=== PATIENT | male | born 1955 | race Caucasian/White ===

== ENCOUNTER 2016-04-19 17:16 | Emergency (ER) | payer OTHER ==
--- NOTE | 2016-04-19 19:48 | DIAGNOSTIC IMAGING REPORT ---
PROCEDURE: CT HEAD WITHOUT CONTRAST INDICATION: SYNCOPE, initial encounter. TECHNIQUE: Noncontrast axial images with sagittal and coronal reformations. COMPARISON: None. FINDINGS: Sulci, ventricular system, and brain parenchyma are normal. No evidence of acute intracranial process. Visualized mastoids and sinuses are clear. IMPRESSION: 1. Negative non-enhanced head CT. 2. Findings discussed with Dr. Waters at 07:43 p.m.[facility] Standard Time
--- NOTE | 2016-04-19 19:48 | DIAGNOSTIC IMAGING REPORT ---
PROCEDURE: CT HEAD WITHOUT CONTRAST INDICATION: SYNCOPE, initial encounter. TECHNIQUE: Noncontrast axial images with sagittal and coronal reformations. COMPARISON: None. FINDINGS: Sulci, ventricular system, and brain parenchyma are normal. No evidence of acute intracranial process. Visualized mastoids and sinuses are clear. IMPRESSION: 1. Negative non-enhanced head CT. 2. Findings discussed with Dr. Waters at 07:43 p.m.[facility] Standard Time
--- NOTE | 2016-04-19 20:05 | DIAGNOSTIC IMAGING REPORT ---
PROCEDURE: XR CHEST 1 VIEW INDICATION: BLURRED VISION TECHNIQUE: Portable AP view 06:34 p.m. COMPARISON: None. FINDINGS: Poor inspiration with mild bibasilar atelectasis. Heart and mediastinum are normal. Thorax is normal. IMPRESSION: 1. Poor inspiration with mild bibasilar atelectasis.
--- NOTE | 2016-04-19 22:02 | ED ORDER SUMMARY ---
..... Patient: ROSY MYERS OrderSheet [facility] VisitID: [id number] [place] [address] 60y, M Registration Date/Time: 04/19/2016 ORDER SHEET Weight: 88.4 kg (stated) Allergies: No Known Drug Allergy GENERAL ORDERS: Math And Sciences Department Chair (Continuous) (17:49 04/19/2016 Debbie ESCOBEDO) (18:00 omanelli R.N.) Cardiac Panel Stat (17:49 04/19/2016 Debbie ESCOBEDO) (Ack 17:53 Tahir) (18:14 Cielo R.N.) Pulse oximeter (17:49 04/19/2016 Debbie ESCOBEDO) (18:00 Cielo R.N.) EKG - ER Stat (17:49 04/19/2016 Debbie ESCOBEDO) (Ack 17:53 OHjacquenandez) (18:00 JRomanelli R.N.) Vitals - Orthostatic (17:49 04/19/2016 Debbie ESCOBEDO) (18:26 JRomanelli R.N.) BNP Urgent (18:26 04/19/2016 Cielo R.N. verbal order read back to Debbie ESCOBEDO) (18:31 TBergley) Chest 1V Urgent (18:27 04/19/2016 Cielo R.N. verbal order read back to Debbie ESCOBEDO) (Ack 18:37 TBergley) (18:48 Perezelli R.N.) CT Head wo Cont Urgent (19:04 04/19/2016 TBergley verbal order read back to Debbie ESCOBEDO) (Ack 19:04 TBergley) (19:27 RFay) MEDICATION ORDERS: - (metoprolol 50 mg xL) (21:54 04/19/2016 Debbie ESCOBEDO) (22:40 Cielo R.N.) IV FLUIDS: IV Saline Lock (17:49 04/19/2016 Debbie ESCOBEDO) (18:14 Cielo R.N.) Lopressor IV 5 mg + 5 mg (NOW) (19:01 04/19/2016 Debbie ESCOBEDO) (19:35 Cielo R.N.) ORDER SHEET NOTES: [Electronically signed by Star Clifford R.N. (23:59 04/19/2016)] [Electronically signed by Brice Waters MD (14:25 04/21/2016)] [Electronically locked/signed by Star Clifford R.N. (23:59 04/19/2016)]
--- NOTE | 2016-04-19 22:02 | ED NURSING NOTES ---
Clinical Report - Nurses [facility] [address] [place] [address] 04/19/2016 17:17 Patient: ROSY MYERS TRIAGE Triage time 17:23. Chief Complaint: (PT STATES HE FELL OVER, ALMOST FAINTED, HAS BLURRED VISION). --17:24 Jing Michaels R.N. Acuity: LEVEL 3. Chief Complaint: (Weakness associated with blurred vision). Alert. DAYLIN COMA SCORE: Daylin Coma Scale: 15- eyes open spontaneously (4); best verbal response- oriented x 4 (5); best motor response- obeys commands (6). --17:58 Star Clifford R.N. 17:48 04/19/16. BP: 228/106. HR: 68. RR: 16. O2 saturation: 94% on room air. Temp: 98.7 F (oral). Pain level now: 0/10. --17:58 Star Clifford R.N. 17:23 04/19/16. Pain level now: 1/10. Additional comments: (R) Big Toe pain. --18:13 Star Clifford R.N. Weight: 88.4 kg stated. Height/Length: 71 inches Per Patient. BMI: 27.2. --17:50 Star Clifford R.N. Medications None. --17:49 Star Clifford R.N. Allergies No Known Drug Allergy. --17:50 Star Clifford R.N. Medication/allergy information source: the patient. --17:58 Star Clifford R.N. History Arrived by private vehicle. Historian: family. Accompanied by (uncle). Primary physician (none). This started today. Onset. (1 hour ago). --17:24 Jing Michaels R.N. The patient has had nausea. ( Weakness). Treatment AGENCY MANAGER: Took aspirin. (325mg). PAST MEDICAL HX: Immunizations: status is unknown. SURGERY HX: No history of previous surgery. SOCIAL HX: Never smoker. Alcohol use. Last drink was 10 years ago. (Hasn't drank for 10 years). No drug use. No infectious disease exposure. ABUSE ASSESSMENT: No report of abuse. FALL RISK ASSESSMENT: Fall risk assessment completed. No fall risk identified. NUTRITIONAL RISK ASSESSMENT: The nutritional risk assessment revealed no deficiencies. FUNCTIONAL ASSESSMENT: Functional assessment: no impairments noted. LEARNING NEEDS ASSESSMENT: The learning needs assessment revealed no barriers. SKIN INTEGRITY ASSESSMENT: Skin integrity risk assessment completed. No skin integrity risk identified. --17:58 Star Clifford R.N. PROBLEMS: Hypoglycemia. --17:52 Star Clifford R.N. Gout. Epistaxis. Nephrolithiasis. --18:12 Star Clifford R.N. ADDITIONAL SURGERIES: no known surgeries. Interventions ID band on patient. To treatment room. --17:58 Star Clifford R.N. PHYSICAL ASSESSMENT Ambulatory to room. GENERAL / NEURO / PSYCH: Alert. Oriented X 4. HEENT: Mucous membranes are pink. RESPIRATORY: Respirations not labored. CVS: Normal sinus rhythm noted. Pulses within normal limits. Capillary refill less than 2 seconds. GI / : Abdomen soft and nontender. EXTREMITIES: No lower extremity edema. SKIN: Skin is warm and dry. Normal skin turgor. Skin is non-tender. --17:59 Star Clifford R.N. RESPIRATORY: Decreased breath sounds in the left lung base posteriorly. Fine crackles in the left lung base posteriorly. CVS: Heart sounds within normal limits. --18:28 Star Clifford R.N. NURSING PROGRESS NOTES ekg monitor tech, pulse oximeter and NIBP monitor placed on patient; court monitor- Lead II and V1; monitor alarms on. Patient gowned. Reassurance given. Patient identifiers checked. Call light placed in reach. Side rails up x 1. Bed placed in lowest position. Brakes of bed on. Patient ready for evaluation- chart flagged and ED physician notified. --17:59 Star Clifford R.N. EKG time: (1803). EKG was ordered, performed by a tech and shown to the ED physician. --18:03 Ofe Foy 18:12 04/19/16. BP: 235/106. HR: 82. RR: 16. O2 saturation: 95%. --18:12 Star Clifford R.N. 18:04 04/19/2016 Site #1 started via IV in the right antecubital space with an 20g angiocath, with aseptic technique and good blood return; one attempt. Blood drawn: rainbow set. Labeled in the presence of the patient and sent to the lab. Saline lock flushed with 10 mL saline. --18:14 Star Clifford R.N. 18:15 04/19/16. BP: 233/107 taken while lying. HR: 86. RR: 16. O2 saturation: 97% on room air. Pain level now: 0/10. --18:24 Star Clifford R.N. 18:18 04/19/16. BP: 238/113. HR: 88. RR: 16. O2 saturation: 95%. --18:25 Star Clifford R.N. 18:21 04/19/16. BP: 240/113. HR: 88. RR: 16. O2 saturation: 94%. --18:26 Star Clifford R.N. 19:30 04/19/2016 Lopressor (Metoprolol Tartrate) IVP 5 mg given over 3 minute(s) via site #1. Allergies verified and confirmed 5 rights. IV patency established. IV site checked: no pain, redness, or swelling. IV flushed thoroughly pre- and post-medication administration. IVP given by RN. --19:35 Star Clifford R.N. 19:45 04/19/2016 Lopressor (Metoprolol Tartrate) IVP 5 mg given over 3 minute(s) via site #1. Allergies verified and confirmed 5 rights. IV patency established. IV site checked: no pain, redness, or swelling. IV flushed thoroughly pre- and post-medication administration. IVP given by RN. --19:48 Star Clifford R.N. 18:35. ( CXR in room). --19:51 Star Clifford R.N. 19:00. Patient transported to CT by stretcher with tech. --19:49 Star Clifford R.N. 19:20. Patient returned from CT by stretcher with tech. --19:49 Star Clifford R.N. 21:14 04/19/16. BP: 192/90. HR: 70. RR: 16. O2 saturation: 97%. Pain level now: 0/10. --21:15 Star Clifford R.N. 22:25 04/19/2016 Metoprolol XL * PO 50 mg --22:40 Star Clifford R.N. 22:35 04/19/2016 Site #1 removed upon discharge. Catheter intact. Manual pressure, bandaid and bandage applied. --23:58 Star Clifford R.N. DISPOSITION / DISCHARGE 22:40 04/19/16. BP: 197/92. HR: 68. RR: 16. O2 saturation: 98% on room air. Temp: 97.6 F. Pain level now: 0/10. --23:54 Star Clifford R.N. Departure time: 2240. --23:54 Star Clifford R.N. 22:40. Condition at departure: improved. No learning barriers present. Discharge instructions provided and reviewed with the patient. Reviewed medication(s) (prescription given to pt). Reviewed referrals ([facility]). Patient verbalized understanding. Written instructions provided in Yi. The patient was discharged by the physician. He was discharged home and unaccompanied at time of discharge. He left the Emergency Department ambulatory and via private vehicle. Patient driving. --23:57 Star Clifford R.N. Locked/Released at 04/19/2016 23:59 by Star Clifford R.N.
--- NOTE | 2016-04-19 22:02 | ED NURSING NOTES ---
Clinical Report - Nurses [facility] [address] [place] [address] 04/19/2016 17:17 Patient: ROSY MYERS TRIAGE Triage time 17:23. Chief Complaint: (PT STATES HE FELL OVER, ALMOST FAINTED, HAS BLURRED VISION). --17:24 Jing Michaels R.N. Acuity: LEVEL 3. Chief Complaint: (Weakness associated with blurred vision). Alert. DAYLIN COMA SCORE: Daylin Coma Scale: 15- eyes open spontaneously (4); best verbal response- oriented x 4 (5); best motor response- obeys commands (6). --17:58 Star Clifford R.N. 17:48 04/19/16. BP: 228/106. HR: 68. RR: 16. O2 saturation: 94% on room air. Temp: 98.7 F (oral). Pain level now: 0/10. --17:58 Star Clifford R.N. 17:23 04/19/16. Pain level now: 1/10. Additional comments: (R) Big Toe pain. --18:13 Star Clifford R.N. Weight: 88.4 kg stated. Height/Length: 71 inches Per Patient. BMI: 27.2. --17:50 Star Clifford R.N. Medications None. --17:49 Star Clifford R.N. Allergies No Known Drug Allergy. --17:50 Star Clifford R.N. Medication/allergy information source: the patient. --17:58 Star Clifford R.N. History Arrived by private vehicle. Historian: family. Accompanied by (uncle). Primary physician (none). This started today. Onset. (1 hour ago). --17:24 Jing Michaels R.N. The patient has had nausea. ( Weakness). Treatment ROD POINTER: Took aspirin. (325mg). PAST MEDICAL HX: Immunizations: status is unknown. SURGERY HX: No history of previous surgery. SOCIAL HX: Never smoker. Alcohol use. Last drink was 10 years ago. (Hasn't drank for 10 years). No drug use. No infectious disease exposure. ABUSE ASSESSMENT: No report of abuse. FALL RISK ASSESSMENT: Fall risk assessment completed. No fall risk identified. NUTRITIONAL RISK ASSESSMENT: The nutritional risk assessment revealed no deficiencies. FUNCTIONAL ASSESSMENT: Functional assessment: no impairments noted. LEARNING NEEDS ASSESSMENT: The learning needs assessment revealed no barriers. SKIN INTEGRITY ASSESSMENT: Skin integrity risk assessment completed. No skin integrity risk identified. --17:58 Star Clifford R.N. PROBLEMS: Hypoglycemia. --17:52 Star Clifford R.N. Gout. Epistaxis. Nephrolithiasis. --18:12 Star Clifford R.N. ADDITIONAL SURGERIES: no known surgeries. Interventions ID band on patient. To treatment room. --17:58 Star Clifford R.N. PHYSICAL ASSESSMENT Ambulatory to room. GENERAL / NEURO / PSYCH: Alert. Oriented X 4. HEENT: Mucous membranes are pink. RESPIRATORY: Respirations not labored. CVS: Normal sinus rhythm noted. Pulses within normal limits. Capillary refill less than 2 seconds. GI / : Abdomen soft and nontender. EXTREMITIES: No lower extremity edema. SKIN: Skin is warm and dry. Normal skin turgor. Skin is non-tender. --17:59 Star Clifford R.N. RESPIRATORY: Decreased breath sounds in the left lung base posteriorly. Fine crackles in the left lung base posteriorly. CVS: Heart sounds within normal limits. --18:28 Star Clifford R.N. NURSING PROGRESS NOTES playground monitor, pulse oximeter and NIBP monitor placed on patient; surveillance system monitor- Lead II and V1; monitor alarms on. Patient gowned. Reassurance given. Patient identifiers checked. Call light placed in reach. Side rails up x 1. Bed placed in lowest position. Brakes of bed on. Patient ready for evaluation- chart flagged and ED physician notified. --17:59 Star Clifford R.N. EKG time: (1803). EKG was ordered, performed by a tech and shown to the ED physician. --18:03 Ofe Foy 18:12 04/19/16. BP: 235/106. HR: 82. RR: 16. O2 saturation: 95%. --18:12 Star Clifford R.N. 18:04 04/19/2016 Site #1 started via IV in the right antecubital space with an 20g angiocath, with aseptic technique and good blood return; one attempt. Blood drawn: rainbow set. Labeled in the presence of the patient and sent to the lab. Saline lock flushed with 10 mL saline. --18:14 Star Clifford R.N. 18:15 04/19/16. BP: 233/107 taken while lying. HR: 86. RR: 16. O2 saturation: 97% on room air. Pain level now: 0/10. --18:24 Star Clifford R.N. 18:18 04/19/16. BP: 238/113. HR: 88. RR: 16. O2 saturation: 95%. --18:25 Star Clifford R.N. 18:21 04/19/16. BP: 240/113. HR: 88. RR: 16. O2 saturation: 94%. --18:26 Star Clifford R.N. 19:30 04/19/2016 Lopressor (Metoprolol Tartrate) IVP 5 mg given over 3 minute(s) via site #1. Allergies verified and confirmed 5 rights. IV patency established. IV site checked: no pain, redness, or swelling. IV flushed thoroughly pre- and post-medication administration. IVP given by RN. --19:35 Star Clifford R.N. 19:45 04/19/2016 Lopressor (Metoprolol Tartrate) IVP 5 mg given over 3 minute(s) via site #1. Allergies verified and confirmed 5 rights. IV patency established. IV site checked: no pain, redness, or swelling. IV flushed thoroughly pre- and post-medication administration. IVP given by RN. --19:48 Star Clifford R.N. 18:35. ( CXR in room). --19:51 Star Clifford R.N. 19:00. Patient transported to CT by stretcher with tech. --19:49 Star Clifford R.N. 19:20. Patient returned from CT by stretcher with tech. --19:49 Star Clifford R.N. 21:14 04/19/16. BP: 192/90. HR: 70. RR: 16. O2 saturation: 97%. Pain level now: 0/10. --21:15 Star Clifford R.N. 22:25 04/19/2016 Metoprolol XL * PO 50 mg --22:40 Star Clifford R.N. 22:35 04/19/2016 Site #1 removed upon discharge. Catheter intact. Manual pressure, bandaid and bandage applied. --23:58 Star Clifford R.N. DISPOSITION / DISCHARGE 22:40 04/19/16. BP: 197/92. HR: 68. RR: 16. O2 saturation: 98% on room air. Temp: 97.6 F. Pain level now: 0/10. --23:54 Star Clifford R.N. Departure time: 2240. --23:54 Star Clifford R.N. 22:40. Condition at departure: improved. No learning barriers present. Discharge instructions provided and reviewed with the patient. Reviewed medication(s) (prescription given to pt). Reviewed referrals ([facility]). Patient verbalized understanding. Written instructions provided in Irish. The patient was discharged by the physician. He was discharged home and unaccompanied at time of discharge. He left the Emergency Department ambulatory and via private vehicle. Patient driving. --23:57 Star Clifford R.N. Locked/Released at 04/19/2016 23:59 by Star Clifford R.N.
--- NOTE | 2016-04-19 22:02 | ED ORDER SUMMARY ---
..... Patient: ROSY MYERS OrderSheet [facility] VisitID: [id number] [place] [address] 60y, M Registration Date/Time: 04/19/2016 ORDER SHEET Weight: 88.4 kg (stated) Allergies: No Known Drug Allergy GENERAL ORDERS: Remotely Piloted Vehicle Controller (Continuous) (17:49 04/19/2016 Debbie ESCOBEDO) (18:00 omanelli R.N.) Cardiac Panel Stat (17:49 04/19/2016 Debbie ESCOBEDO) (Ack 17:53 Tahir) (18:14 Cielo R.N.) Pulse oximeter (17:49 04/19/2016 Debbie ESCOBEDO) (18:00 Cielo R.N.) EKG - ER Stat (17:49 04/19/2016 Debbie ESCOBEDO) (Ack 17:53 OHjacquenandez) (18:00 JRomanelli R.N.) Vitals - Orthostatic (17:49 04/19/2016 Debbie ESCOBEDO) (18:26 JRomanelli R.N.) BNP Urgent (18:26 04/19/2016 Cielo R.N. verbal order read back to Debbie ESCOBEDO) (18:31 TBergley) Chest 1V Urgent (18:27 04/19/2016 Cielo R.N. verbal order read back to Debbie ESCOBEDO) (Ack 18:37 TBergley) (18:48 Perezelli R.N.) CT Head wo Cont Urgent (19:04 04/19/2016 TBergley verbal order read back to Debbie ESCOBEDO) (Ack 19:04 TBergley) (19:27 RFay) MEDICATION ORDERS: - (metoprolol 50 mg xL) (21:54 04/19/2016 Debbie ESCOBEDO) (22:40 Cielo R.N.) IV FLUIDS: IV Saline Lock (17:49 04/19/2016 Debbie ESCOBEDO) (18:14 Cielo R.N.) Lopressor IV 5 mg + 5 mg (NOW) (19:01 04/19/2016 Debbie ESCOBEDO) (19:35 Cielo R.N.) ORDER SHEET NOTES: [Electronically signed by Star Clifford R.N. (23:59 04/19/2016)] [Electronically signed by Brice Waters MD (14:25 04/21/2016)] [Electronically locked/signed by Star Clifford R.N. (23:59 04/19/2016)]
--- NOTE | 2016-04-19 22:02 | ED CLINICAL REPORT ---
Clinical Report - Physicians/Mid Levels [facility]ly [facility] [address] [place] [address] 04/19/2016 17:17 Patient: ROSY MYERS Arrived- By private vehicle. Historian- patient. HISTORY OF PRESENT ILLNESS Chief Complaint: NEAR-SYNCOPE. It was gradual in onset. This occurred just prior to arrival today. ([place] like he was going to faint blurry vision [place] weak Equivocal 2 minutes of L hand numbness). Event was not witnessed. The patient felt faint. No loss of consciousness, seizure activity, incontinence or apnea noted. Did not lose pulse. At time of event, he was standing. This did not occur after he had just stood up or during exertion. The patient had preceding symptoms of light-headedness and dim vision. No preceding symptoms of nausea, chest pain or abdominal pain. Had a single episode. The episode was brief. No injuries noted. Currently he feels normal. No nausea currently. No headache currently. (Took an aspirin at home). Similar symptoms previously: None. REVIEW OF SYSTEMS No headache, chest pain or pain, difficulty breathing or chills. No fever, sweats, double vision, eye irritation or ear pain. No hearing loss, tinnitus, sinus pain, mouth sores or sore throat. No cough, difficulty breathing, palpitations, abdominal pain or black stools. No bloody stools, diarrhea, nausea or vomiting. No urinary frequency or urinary problems, back pain, neck pain or laceration. No skin rash, alteration in mental status, headache, head injury or numbness. No suicidal thoughts or difficulty with urination. The patient has had weakness of the left hand (mild), (equivocal history of very brief). He has had decreased vision. Denies sleep disorder. No difficulty walking. PAST HISTORY ( PCP: none Illness, Renal colic,). SOCIAL HISTORY Never smoker. No alcohol use. ADDITIONAL NOTES The nursing notes have been reviewed. PHYSICAL EXAM Vital Signs: 04/19/2016 22:40 BP: 197/92. HR: 68. RR: 16. O2 saturation: 98%. Temp: 97.6 F. Pain level now: 0/10. 04/19/2016 21:14 BP: 192/90. HR: 70. RR: 16. O2 saturation: 97%. Pain level now: 0. 04/19/2016 18:21 BP: 240/113. HR: 88. RR: 16. O2 saturation: 94%. 04/19/2016 18:18 BP: 238/113. HR: 88. RR: 16. O2 saturation: 95%. 04/19/2016 18:15 BP: 233/107. HR: 86. RR: 16. O2 saturation: 97%. Pain level now: 0. 04/19/2016 18:12 BP: 235/106. HR: 82. RR: 16. O2 saturation: 95%. 04/19/2016 17:48 BP: 228/106. HR: 68. RR: 16. O2 saturation: 94%. Temp: 98.7 F. Pain level now: . 04/19/2016 17:23 Pain level now: 02/25. Appearance: Alert. No acute distress. Eyes: Pupils equal, round and reactive to light. No nystagmus. Extraocular movements normal. No double vision. No dysconjugate gaze. No nystagmus. Funduscopic findings; (Bilateral disks - equivocally normal.) No retinal hemorrhages right eye. No exudates right eye. No AV nicking right eye or left eye. No retinal hemorrhages left eye. No exudates present left eye. ENT: Normal ENT inspection. Moist mucous membranes. Pharynx normal. Neck: Normal inspection. Neck supple. CVS: Normal heart rate and rhythm. Heart sounds normal. Respiratory: No respiratory distress. Breath sounds normal. Abdomen: Soft and nontender. Back: Normal inspection. Skin: Skin warm. Normal skin color. Extremities: Extremities exhibit normal ROM. No lower extremity edema. Neuro: Alert. Oriented X 3. Mood/affect normal. Speech normal. Cranial nerves normal (as tested). No facial weakness or visual field deficit. Normal gait. No motor deficit. No weakness. No sensory deficit. Reflexes normal. No pronator drift. LABS, X-RAYS, AND EKG EKG: Rate: 74. Normal P waves. Normal WILLIAM. Q waves in lead III, aVF, V1 and V2. Non-specific ST segment / T wave abnormalities. The study has been independently viewed by me. The EKG appears to be a good tracing. Chest X-ray: (PROCEDURE: XR CHEST 1 VIEW INDICATION: BLURRED VISION TECHNIQUE: Portable AP view 06:34 p.m. COMPARISON: None. FINDINGS: Poor inspiration with mild bibasilar atelectasis. Heart and mediastinum are normal. Thorax is normal. IMPRESSION: 1. Poor inspiration with mild bibasilar atelectasis. Electronically Final signed by:Frank Grace MD 04/19/2016 8:05:[address] Head: No acute disease. Laboratory Tests: CBC w Diff: (DENIA: 04/19/2016 18:00) ( MsgRcvd 04/19/2016 18:30) Final results Test Result Flag Units (Reference) WHITE BLOOD COUNT 8.8 K/uL (4.5-11.5) RED BLOOD COUNT 5.22 M/uL (4.50-5.90) HEMOGLOBIN 15.7 gm/dL (13.5-17.5) HEMATOCRIT 46.7 % (41.0-53.0) MEAN CELL VOLUME 89 fL (80-100) MEAN CORPUSCULAR HGB 30 pg (26-34) MEAN CORPUSCULAR HGB CONC 34 g/dL (31-37) RED CELL DISTRIBUTION WIDTH 12.7 % (11.6-14.8) PLATELET COUNT 349 K/uL (150-400) NEUTROPHIL % 78.3 H % (50-75) LYMPH % 14.4 L % (25-40) MONO % 5.2 % (3-14) EOSINOPHIL % 1.6 % (0-4) BASOPHIL % 0.5 % (0-2) BNP: (DENIA: 04/19/2016 18:00) ( MsgRcvd 04/19/2016 20:02) Final results Test Result Flag Units (Reference) B-TYPE NATRIURETIC PEPTIDE 49.2 pg/ml (5-100) CHEM 13 PANEL: (DENIA: 04/19/2016 18:00) ( MsgRcvd 04/19/2016 19:16) Final results Test Result Flag Units (Reference) GLUCOSE 155 H mg/dL (70-110) BUN 17 mg/dL (7-18) CREATININE 1.1 mg/dL (0.6-1.3) Estimated GFR >60 mL/min Estimated GFR- >60 mL/min Note: Persistent reduction over 3 months in eGFR<60 mL/min/1.73 m2 defines CKD. Patients with eGFR values>=60 mL/min/1.73 m2 may also have CKD if evidence ofpersistent proteinuria. Additional information may be foundat [email or web address]. SODIUM 140 mmol/L (136-145) POTASSIUM 3.7 mmol/L (3.5-5.1) CHLORIDE 101 mmol/L (98-107) CARBON DIOXIDE 29 mmol/L (21-32) CALCIUM 8.7 mg/dL (8.5-10.1) TOTAL PROTEIN 7.7 g/dL (6.4-8.2) ALBUMIN 3.6 g/dL (3.3-5.0) BILIRUBIN, TOTAL 0.4 mg/dL (0.0-1.0) ALKALINE PHOSPHATASE 130 H U/L (46-116) AST (SGOT) 23 U/L (15-37) ALT (SGPT) 22 U/L (12-78) MAGNESIUM 2.1 mg/dL (1.8-2.4) CPK 77 U/L (24-260) TROPONIN I <0.05 L ng/mL (0.00-1.5) TROPONIN REFERENCE RANGE:<0.1 NEGATIVE0.1-1.5 INDETERMINANT>1.5 POSITIVE . PROGRESS AND PROCEDURES Course of Care: 17:32 04/19/16. FAST negative negative on arrival 20:03 04/19/16. BP after meds x 2 207/88 Discussion. Is this hypertensive encephalopathy or TIA? Probably not. There is significant systolic hypertension but diastolic hypertension is not that great. The positive historical and physical findings are soft/equivocal. I think initiation of expeditious but not emergent control is warranted with prompt establishment of primary care. Next FU could be in ED if Mr Myers is unable to quickly establish primary care. 04/19/2016 22:40 BP: 197/92. HR: 68. RR: 16. O2 saturation: 98%. Temp: 97.6 F. Pain level now: 0. 04/19/2016 21:14 BP: 192/90. HR: 70. RR: 16. O2 saturation: 97%. Pain level now: 0. 04/19/2016 18:21 BP: 240/113. HR: 88. RR: 16. O2 saturation: 94%. 04/19/2016 18:18 BP: 238/113. HR: 88. RR: 16. O2 saturation: 95%. 04/19/2016 18:15 BP: 233/107. HR: 86. RR: 16. O2 saturation: 97%. Pain level now: 0. 04/19/2016 18:12 BP: 235/106. HR: 82. RR: 16. O2 saturation: 95%. 04/19/2016 17:48 BP: 228/106. HR: 68. RR: 16. O2 saturation: 94%. Temp: 98.7 F. Pain level now: 0. 04/19/2016 17:23 Pain level now: /10. CLINICAL IMPRESSION Hypertension (SEVERE). INSTRUCTIONS (TAKE YOUR BLOOD PRESSURE DAILY. RECHECK IF THE SECOND NUMBER IS MORE THAN 115 IMMEDIATE RECHECK FOR CHEST PAIN, SEVERE HEADACHE, OR VISION CHANGES YOU MUST ESTABLISH PRIMARY CARE TO FOLLOW YOUR BLOOD PRESSURE.). Prescription Medications: Lopressor 50 mg: take 1 orally every 12 hours. No refills. Substitution is permissible. (DISPENSE #60) Follow-up with: [facility], , , [address], , [place], [address] Follow up in three days. Call for the next available appointment. (Electronically signed by Briec Waters MD 04/21/2016 14:25)
--- NOTE | 2016-04-21 14:26 | ED DISCHARGE INSTRUCTIONS ---
Patient: ROSY MYERS General Instructions [facility] VisitID: [id number] [address] [place] [address] 60y, M Registration Date/Time: 04/19/2016 Hypertension (SEVERE). INSTRUCTIONS (TAKE YOUR BLOOD PRESSURE DAILY. RECHECK IF THE SECOND NUMBER IS MORE THAN 115 IMMEDIATE RECHECK FOR CHEST PAIN, SEVERE HEADACHE, OR VISION CHANGES YOU MUST ESTABLISH PRIMARY CARE TO FOLLOW YOUR BLOOD PRESSURE.). Prescription Medications: Lopressor 50 mg: take 1 orally every 12 hours. No refills. Substitution is permissible. (DISPENSE #60) Follow-up with: [facility], , , [address], [place], [address] Follow up in three days. Call for the next available appointment. ADDITIONAL INFORMATION High Blood Pressure -- New (Begin Tx) Your blood pressure was high enough today to start treatment with medicines. The cause of hypertension is unknown in most cases, but can be controlled with lifestyle changes and/or medicines. Hypertension may cause headache, dizziness, blurred vision, rushing sound in your ears, chest pain or shortness of breath. Sometimes it causes no symptoms at all. However, untreated hypertension increases the risk of heart attack, also known as acute myocardial infarction, or AMI, and stroke. It is a serious health risk and should not be ignored. A normal blood pressure is 120/80 or less. The first (top) number is the "systolic" pressure. The second (bottom) number is the "diastolic" pressure. Hypertension exists when either the top number is 140 or higher, OR the bottom number is 90 or higher on repeated measurements. Home Care: All patients with hypertension should do the following to lower their pressure. If you are on medicines, then these methods may reduce or eliminate your need for medicine in the future. Begin a weight loss program if you are overweight. Reduce your salt intake. Avoid high salt foods (olives, pickles, smoked meats, salted potato chips, etc.). Do not add salt to your food at the table. Use only small amounts of salt when cooking. Begin an exercise program. Discuss with your doctor what type of exercise program would be best for you. It doesn't have to be difficult. Even brisk walking for 20 minutes three times a week is a good form of exercise. Avoid medicines which contain heart stimulants. This includes many cold and sinus decongestant pills and sprays as well as diet pills. Check the warnings about hypertension on the label. Stimulants such as amphetamine or cocaine could be lethal for someone with hypertension. Never take these. Limit your caffeine intake or switch to caffeine-free products. Stop smoking. If you are a long-time smoker, this can be hard. Enroll in a stop-smoking program to improve your chance of success. Talk to your physician about ways to improve your chance of success. Learning how to handle stress better is an important part of any program to lower blood pressure. Learn about relaxation methods such as meditation, yoga, or biofeedback. If medicines were prescribed, take them exactly as directed. Missing doses may cause your blood pressure to get out of control. Consider buying an automatic blood pressure machine (available at many pharmacies). Use this to monitor your blood pressure and report to your doctor. Follow Up: Because a new blood pressure medicine was started today, it is important that you have your blood pressure rechecked to be sure you are responding well and that there are no serious side effects. Unless told otherwise, follow-up with your doctor or this facility within the next THREE DAYS. Get Prompt Medical Attention if any of the following occur: Chest pain or shortness of breath Severe headache Throbbing or rushing sound in the ears Nosebleed Sudden severe abdominal pain Extreme drowsiness, confusion or fainting Dizziness or vertigo (dizziness with spinning sensation) Weakness of an arm or leg or one side of the face Difficulty with speech or vision Metoprolol Tartrate Oral tablet What is this medicine? METOPROLOL (me TOE proe lole) is a beta-angi. Beta-blockers reduce the workload on the heart and help it to beat more regularly. This medicine is used to treat high blood pressure and to prevent chest pain. It is also used to after a heart attack and to prevent an additional heart attack from occurring. How should I use this medicine? Take this medicine by mouth with a drink of water. Follow the directions on the prescription label. Take this medicine immediately after meals. Take your doses at regular intervals. Do not take more medicine than directed. Do not stop taking this medicine suddenly. This could lead to serious heart-related effects. Talk to your maintenance clerk regarding the use of this medicine in children. Special care may be needed. What side effects may I notice from receiving this medicine? Side effects that you should report to your doctor or health clinical care leader as soon as possible: allergic reactions like skin rash, itching or hives cold or numb hands or feet depression difficulty breathing faint fever with sore throat irregular heartbeat, chest pain rapid weight gain swollen legs or ankles Side effects that usually do not require medical attention (report to your doctor or health clinical care leader if they continue or are bothersome): anxiety or nervousness change in sex drive or performance dry skin headache nightmares or trouble sleeping short term memory loss stomach upset or diarrhea unusually tired What may interact with this medicine? Do not take this medicine with any of the following medications: sotalol This medicine may also interact with the following medications: clonidine digoxin dobutamine epinephrine isoproterenol medicine to control heart rhythm like quinidine, propafenone medicine for depression like monoamine oxidase (MAO) inhibitors, fluoxetine, and paroxetine medicine for high blood pressure like calcium channel blockers reserpine What if I miss a dose? If you miss a dose, take it as soon as you can. If it is almost time for your next dose, take only that dose. Do not take double or extra doses. Where should I keep my medicine? Keep out of the reach of children. Store at room temperature between 15 and 30 degrees C (59 and 86 degrees F). Throw away any unused medicine after the expiration date. What should I tell my health care provider before I take this medicine? They need to know if you have any of these conditions: diabetes heart or vessel disease like slow heart rate, worsening heart failure, heart block, sick sinus syndrome or Raynaud's disease kidney disease liver disease lung or breathing disease, like asthma or emphysema pheochromocytoma thyroid disease an unusual or allergic reaction to metoprolol, other beta-blockers, medicines, foods, dyes, or preservatives or trying to get breast-feeding What should I watch for while using this medicine? Visit your doctor or health clinical care leader for regular check ups. Contact your doctor right away if your symptoms worsen. Check your blood pressure and pulse rate regularly. Ask your health clinical care leader what your blood pressure and pulse rate should be, and when you should contact them. You may get drowsy or dizzy. Do not drive, use machinery, or do anything that needs mental alertness until you know how this medicine affects you. Do not sit or stand up quickly, especially if you are an older patient. This reduces the risk of dizzy or fainting spells. Contact your doctor if these symptoms continue. Alcohol may interfere with the effect of this medicine. Avoid alcoholic drinks. You have been given the following additional information: Hypertension, New (Begin Treatment) Metoprolol Tartrate Oral tablet (Electronically signed by Brice Waters MD 04/21/2016 14:25)
--- NOTE | 2016-04-21 14:26 | ED MED RECONCILIATION SUMMARY ---
Patient: ROSY MYERS Medication Reconciliation Report [facility] VisitID: [id number] [address] [place] [address] 60y, M Registration Date/Time: 04/19/2016 Weight: 88.4 kg Height/Length: 71 in. BMI: 27.2 ALLERGIES: No Known Drug Allergy The patient's Home Medications are listed below: NONE. The source(s) of the original Home Medication information: patient The following Medications were given to the patient in the Emergency Department: Lopressor [IVP] IVP 5 mg, administered: 04/19/2016 7:30:00 PM Lopressor [IVP] IVP 5 mg, administered: 04/19/2016 7:45:00 PM Metoprolol XL PO 50 mg, administered: 04/19/2016 10:25:00 PM The following Medications were prescribed to the patient: Lopressor 50 mg: take 1 orally every 12 hours. No refills. Substitution is permissible.(DISPENSE #60) -- Brice Waters MD
--- NOTE | 2016-04-21 14:26 | ED DISCHARGE INSTRUCTIONS ---
Patient: ROSY MYERS General Instructions [facility] VisitID: [id number] [address] [place] [address] 60y, M Registration Date/Time: 04/19/2016 Hypertension (SEVERE). INSTRUCTIONS (TAKE YOUR BLOOD PRESSURE DAILY. RECHECK IF THE SECOND NUMBER IS MORE THAN 115 IMMEDIATE RECHECK FOR CHEST PAIN, SEVERE HEADACHE, OR VISION CHANGES YOU MUST ESTABLISH PRIMARY CARE TO FOLLOW YOUR BLOOD PRESSURE.). Prescription Medications: Lopressor 50 mg: take 1 orally every 12 hours. No refills. Substitution is permissible. (DISPENSE #60) Follow-up with: [facility], , , [address], [place], [address] Follow up in three days. Call for the next available appointment. ADDITIONAL INFORMATION High Blood Pressure -- New (Begin Tx) Your blood pressure was high enough today to start treatment with medicines. The cause of hypertension is unknown in most cases, but can be controlled with lifestyle changes and/or medicines. Hypertension may cause headache, dizziness, blurred vision, rushing sound in your ears, chest pain or shortness of breath. Sometimes it causes no symptoms at all. However, untreated hypertension increases the risk of heart attack, also known as acute myocardial infarction, or AMI, and stroke. It is a serious health risk and should not be ignored. A normal blood pressure is 120/80 or less. The first (top) number is the "systolic" pressure. The second (bottom) number is the "diastolic" pressure. Hypertension exists when either the top number is 140 or higher, OR the bottom number is 90 or higher on repeated measurements. Home Care: All patients with hypertension should do the following to lower their pressure. If you are on medicines, then these methods may reduce or eliminate your need for medicine in the future. Begin a weight loss program if you are overweight. Reduce your salt intake. Avoid high salt foods (olives, pickles, smoked meats, salted potato chips, etc.). Do not add salt to your food at the table. Use only small amounts of salt when cooking. Begin an exercise program. Discuss with your doctor what type of exercise program would be best for you. It doesn't have to be difficult. Even brisk walking for 20 minutes three times a week is a good form of exercise. Avoid medicines which contain heart stimulants. This includes many cold and sinus decongestant pills and sprays as well as diet pills. Check the warnings about hypertension on the label. Stimulants such as amphetamine or cocaine could be lethal for someone with hypertension. Never take these. Limit your caffeine intake or switch to caffeine-free products. Stop smoking. If you are a long-time smoker, this can be hard. Enroll in a stop-smoking program to improve your chance of success. Talk to your physician about ways to improve your chance of success. Learning how to handle stress better is an important part of any program to lower blood pressure. Learn about relaxation methods such as meditation, yoga, or biofeedback. If medicines were prescribed, take them exactly as directed. Missing doses may cause your blood pressure to get out of control. Consider buying an automatic blood pressure machine (available at many pharmacies). Use this to monitor your blood pressure and report to your doctor. Follow Up: Because a new blood pressure medicine was started today, it is important that you have your blood pressure rechecked to be sure you are responding well and that there are no serious side effects. Unless told otherwise, follow-up with your doctor or this facility within the next THREE DAYS. Get Prompt Medical Attention if any of the following occur: Chest pain or shortness of breath Severe headache Throbbing or rushing sound in the ears Nosebleed Sudden severe abdominal pain Extreme drowsiness, confusion or fainting Dizziness or vertigo (dizziness with spinning sensation) Weakness of an arm or leg or one side of the face Difficulty with speech or vision Metoprolol Tartrate Oral tablet What is this medicine? METOPROLOL (me TOE proe lole) is a beta-angi. Beta-blockers reduce the workload on the heart and help it to beat more regularly. This medicine is used to treat high blood pressure and to prevent chest pain. It is also used to after a heart attack and to prevent an additional heart attack from occurring. How should I use this medicine? Take this medicine by mouth with a drink of water. Follow the directions on the prescription label. Take this medicine immediately after meals. Take your doses at regular intervals. Do not take more medicine than directed. Do not stop taking this medicine suddenly. This could lead to serious heart-related effects. Talk to your stamp machine servicer regarding the use of this medicine in children. Special care may be needed. What side effects may I notice from receiving this medicine? Side effects that you should report to your doctor or health director long term care as soon as possible: allergic reactions like skin rash, itching or hives cold or numb hands or feet depression difficulty breathing faint fever with sore throat irregular heartbeat, chest pain rapid weight gain swollen legs or ankles Side effects that usually do not require medical attention (report to your doctor or health director long term care if they continue or are bothersome): anxiety or nervousness change in sex drive or performance dry skin headache nightmares or trouble sleeping short term memory loss stomach upset or diarrhea unusually tired What may interact with this medicine? Do not take this medicine with any of the following medications: sotalol This medicine may also interact with the following medications: clonidine digoxin dobutamine epinephrine isoproterenol medicine to control heart rhythm like quinidine, propafenone medicine for depression like monoamine oxidase (MAO) inhibitors, fluoxetine, and paroxetine medicine for high blood pressure like calcium channel blockers reserpine What if I miss a dose? If you miss a dose, take it as soon as you can. If it is almost time for your next dose, take only that dose. Do not take double or extra doses. Where should I keep my medicine? Keep out of the reach of children. Store at room temperature between 15 and 30 degrees C (59 and 86 degrees F). Throw away any unused medicine after the expiration date. What should I tell my health care provider before I take this medicine? They need to know if you have any of these conditions: diabetes heart or vessel disease like slow heart rate, worsening heart failure, heart block, sick sinus syndrome or Raynaud's disease kidney disease liver disease lung or breathing disease, like asthma or emphysema pheochromocytoma thyroid disease an unusual or allergic reaction to metoprolol, other beta-blockers, medicines, foods, dyes, or preservatives or trying to get breast-feeding What should I watch for while using this medicine? Visit your doctor or health director long term care for regular check ups. Contact your doctor right away if your symptoms worsen. Check your blood pressure and pulse rate regularly. Ask your health director long term care what your blood pressure and pulse rate should be, and when you should contact them. You may get drowsy or dizzy. Do not drive, use machinery, or do anything that needs mental alertness until you know how this medicine affects you. Do not sit or stand up quickly, especially if you are an older patient. This reduces the risk of dizzy or fainting spells. Contact your doctor if these symptoms continue. Alcohol may interfere with the effect of this medicine. Avoid alcoholic drinks. You have been given the following additional information: Hypertension, New (Begin Treatment) Metoprolol Tartrate Oral tablet (Electronically signed by Brice Waters MD 04/21/2016 14:25)
--- NOTE | 2016-04-21 14:26 | ED MAR SUMMARY ---
..... Medication Administration Record [facility] [address] [place] [address] Patient: ROSY MYERS Visit ID: [id number] 60y, M Weight: 88.4 kg Height/Length: 71 in BMI: 27.2 ALLERGIES: No Known Drug Allergy Given 19:30 04/19/2016 Star Clifford R.N. Medication Administered: LOPRESSOR [IVP] (METOPROLOL TARTRATE), Dose: 5 mg IVP over 3 minute(s), Site: #1 right AC. Medication Ordered: Lopressor IV 5 mg + 5 mg (NOW). Given 19:45 04/19/2016 Star Clifford R.N. Medication Administered: LOPRESSOR [IVP] (METOPROLOL TARTRATE), Dose: 5 mg IVP over 3 minute(s), Site: #1 right AC. Medication Ordered: Lopressor IV 5 mg + 5 mg (NOW). Given 22:25 04/19/2016 Star Clifford RKallieN. Medication Administered: Metoprolol XL *, Dose: 50 mg * PO. Medication Ordered: - (metoprolol 50 mg xL).
--- NOTE | 2016-04-21 14:26 | ED MED RECONCILIATION SUMMARY ---
Patient: ROSY MYERS Medication Reconciliation Report [facility] VisitID: [id number] [address] [place] [address] 60y, M Registration Date/Time: 04/19/2016 Weight: 88.4 kg Height/Length: 71 in. BMI: 27.2 ALLERGIES: No Known Drug Allergy The patient's Home Medications are listed below: NONE. The source(s) of the original Home Medication information: patient The following Medications were given to the patient in the Emergency Department: Lopressor [IVP] IVP 5 mg, administered: 04/19/2016 7:30:00 PM Lopressor [IVP] IVP 5 mg, administered: 04/19/2016 7:45:00 PM Metoprolol XL PO 50 mg, administered: 04/19/2016 10:25:00 PM The following Medications were prescribed to the patient: Lopressor 50 mg: take 1 orally every 12 hours. No refills. Substitution is permissible.(DISPENSE #60) -- Brice Waters MD
--- NOTE | 2016-04-21 14:26 | ED MAR SUMMARY ---
..... Medication Administration Record [facility] [address] [place] [address] Patient: ROSY MYERS Visit ID: [id number] 60y, M Weight: 88.4 kg Height/Length: 71 in BMI: 27.2 ALLERGIES: No Known Drug Allergy Given 19:30 04/19/2016 Star Clifford R.N. Medication Administered: LOPRESSOR [IVP] (METOPROLOL TARTRATE), Dose: 5 mg IVP over 3 minute(s), Site: #1 right AC. Medication Ordered: Lopressor IV 5 mg + 5 mg (NOW). Given 19:45 04/19/2016 Star Clifford R.N. Medication Administered: LOPRESSOR [IVP] (METOPROLOL TARTRATE), Dose: 5 mg IVP over 3 minute(s), Site: #1 right AC. Medication Ordered: Lopressor IV 5 mg + 5 mg (NOW). Given 22:25 04/19/2016 Star Clifford RKallieN. Medication Administered: Metoprolol XL *, Dose: 50 mg * PO. Medication Ordered: - (metoprolol 50 mg xL).
== END 2016-04-19 22:40 | disposition home or self-care (01) ==
LOC: ED SRH 17:16
DX: I10 Essential (primary) hypertension (principal)
CPT/HCPCS: 90100; 90616; 91320; 92610; 92720; 95059